=== PATIENT | male | born 2000 | race Caucasian/White ===

== ENCOUNTER 2018-10-07 07:49 | Emergency (ER) | payer SELFPAY ==
[~2018-10-07] VITALS: Ht 160 cm; Wt 54.0 kg
[2018-10-07 08:45] VITALS: BP 114/73
[2018-10-07] MEDS ORDERED: RISPERIDONE 1MG TABLET PO SCH (09:00)
[2018-10-07 09:26] LABS: *AMPHETAMINES SCREEN URINE NEGATIVE (NEGATIVE); *BARBITURATES SCREEN URINE NEGATIVE (NEGATIVE); *COCAINE SCREEN URINE NEGATIVE (NEGATIVE); CANNABINOID URINE SCREEN NEGATIVE (NEGATIVE); METHADONE URINE SCREEN NEGATIVE (NEGATIVE); OPIATES URINE SCREEN NEGATIVE (NEGATIVE); PHENCYCLIDINE URINE SCREEN NEGATIVE (NEGATIVE)
[2018-10-07 09:27] LABS: *BENZODIAZEPINES SCREEN URINE NEGATIVE (NEGATIVE)
== END 2018-10-07 09:37 | disposition left against medical advice (07) ==
LOC: ER 08:18
DX: F20.9 Schizophrenia, unspecified (principal); F32.9 Major depressive disorder, single episode, unspecified; F17.200 Nicotine dependence, unspecified, uncomplicated
CPT/HCPCS: 80305; 99283